=== PATIENT | male | born 1975 | race Caucasian/White ===

== ENCOUNTER 2020-05-25 19:59 | Emergency (ER) | payer OTHER ==
[~2020-05-25] VITALS: Ht 180.3 cm; Wt 145.1 kg
[2020-05-25 20:14] VITALS: BP 156/94; Ht 180.3 cm; Wt 145.1 kg
[2020-05-25] MEDS ORDERED: NAPROXEN375 MG PO (20:36)
[2020-05-25] MEDS ORDERED: ULTRAM50 MG PO (20:36)
== END 2020-05-25 20:45 | disposition home or self-care (01) ==
LOC: ED 19:59
DX: M54.9 Dorsalgia, unspecified (principal)